=== PATIENT | female | born 1955 | race Caucasian/White ===

== ENCOUNTER 2021-11-21 05:41 | Outpatient (CLI) | payer BC ==
[~2021-11-21] VITALS: Ht 165.1 cm; Wt 88.6 kg
[2021-11-21] MEDS ORDERED: METO50TA7 PO (17:12)
[2021-11-21] MEDS ORDERED: KRIL500C PO (17:12)
[2021-11-21] MEDS ORDERED: FEXO180T84 PO (17:12)
[2021-11-21] MEDS ORDERED: POTA-177 PO (17:12)
[2021-11-21] MEDS ORDERED: MAGN250T13 PO (17:12)
[2021-11-21] MEDS ORDERED: MONT-40 PO (17:12)
[2021-11-21] MEDS ORDERED: UBID200C16 PO (17:12)
[2021-11-21] MEDS ORDERED: PRAV20TA3 PO (17:12)
[2021-11-21] MEDS ORDERED: LEVO125C4 PO (17:12)
== END 2021-11-21 17:13 | disposition home or self-care (01) ==
LOC: PREOP 05:41
PROVIDERS: ATTEND Specialist
DX: Z01.818 Encounter for other preprocedural examination (principal)

== ENCOUNTER 2021-11-25 10:14 | Day surgery (SDC) | payer BC ==
[~2021-11-25] VITALS: Ht 165 cm; Wt 88.6 kg
[~2021-11-25 10:14] MED LIST: FEXO180T84 PO; KRIL500C PO; LEVO125C4 PO; MAGN250T13 PO; METO50TA7 PO; MONT-40 PO; POTA-177 PO; PRAV20TA3 PO; UBID200C16 PO
[2021-11-25] MEDS: TETRACAINE 0.5% OPHTH SOLN 4 ML BTL (SINGLE DOSE ONLY) OU PRN ×4 (10:44→11:00)
[2021-11-25] MEDS ORDERED: POVIDONE (BETADINE) OPHTH SOLN 5% 30 ML OP ONE (10:45)
[2021-11-25] MEDS ORDERED: TIMOLOL MALEATE 0.5% 5 ML (TIMOPTIC) BTL OU PRN (10:45)
[2021-11-25] MEDS ORDERED: MOXIFLOXACIN OPHTH SOLN 5 MG/ML 0.3 ML SYRINGE OP ONE (10:45)
[2021-11-25] MEDS ORDERED: acetaZOLAMIDE ER 500 MG CAP (DIAMOX SEQUELS) PO ONE (10:45)
[2021-11-25] MEDS: TROPICAMIDE 1% OPH SOLN (MYDRIACYL) 15 ML BTL OP SCH ×3 (10:50→11:00)
[2021-11-25] MEDS: PHENYLEPHRINE 10% OPHTH (NEO-SYN) 5 ML BTL OU SCH ×3 (10:50→11:00)
[2021-11-25 10:51] VITALS: BP 169/77
[2021-11-25] MEDS ORDERED: MIDAZOLAM 2 MG/2 ML (VERSED) VIAL ONE (11:44)
--- NOTE | 2021-11-25 11:48 | Ophthalmologist Pre-Op Note ---
Pre-Operative Progress Note H&P Reviewed The H&P was reviewed, patient examined and no changes noted. Date H&P Reviewed: Nov 25, 2021 Time H&P Reviewed: 11:48 Pre-Op Dx Cataract, Left Eye DIOGENES GUDINO MD Nov 25, 2021 11:48
--- NOTE | 2021-11-25 12:10 | Ophthalmology Operative Report ---
Cataract removal/placement IOL PREOPERATIVE DIAGNOSIS: Cataract Left Eye POSTOPERATIVE DIAGNOSIS: Cataract Left Eye PROCEDURE: Cataract removal and placement of posterior chamber implant, left eye SURGEON: Adam Gudino ANESTHESIA: Topical with sedation COMPLICATIONS: None ESTIMATED BLOOD LOSS: Minimal DESCRIPTION OF PROCEDURE: After proper informed consent was obtained, the patient, a 66 female, was taken to the Operating Room and the left eye was anesthetized with tetracaine. The left eye was then prepped and draped in the usual manner. A wire lid speculum was placed. A paracentesis was made at the left hand position. Preservative free lidocaine was injected into the anterior chamber followed by viscoelastic. A clear corneal incision was made in the temporal position. A capsulorrhexis was preformed and the central nuclear and cortical material were removed. The posterior capsule was polished and an Dejuan 20.0 AU00T0 was placed into the capsular bag. The residual viscoelastic was aspirated and balanced saline solution was injected into the anterior chamber. Moxifloxacin was injected into the anterior chamber. The wound was checked and found to be water tight. The patient tolerated the procedure well without complications. ADAM GUDINO MD Nov 25, 2021 12:10
[2021-11-25 12:15] VITALS: BP 168/94
--- NOTE | 2021-11-25 14:43 | Anesthesia-General Post-Op ---
MAC Patient Condition Mental Status/LOC: Same as Preop Cardiovascular: Satisfactory Nausea/Vomiting: Absent Respiratory: Satisfactory Pain: Controlled Complications: Absent Post Op Complications Complications None Follow Up Care/Instructions Patient Instructions None needed. Anesthesiology Discharge Order Discharge Order Patient is doing well, no complaints, stable vital signs, no apparent adverse anesthesia problems. No complications reported per nursing. CHAD SCOTT CRNA Nov 25, 2021 14:43
== END 2021-11-25 12:16 | disposition home or self-care (01) ==
LOC: SDC 10:14
PROVIDERS: ATTEND Specialist
DX: H25.9 Unspecified age-related cataract (principal); Z87.891 Personal history of nicotine dependence
CPT/HCPCS: 66984; V2632